=== PATIENT | male | born 1955 | race Caucasian/White ===

== ENCOUNTER → 2020-08-01 | Outpatient (CLI) | payer BC ==
[~2020-08-01] MED LIST: ADVIL; CLOPIDOGREL75 MG; ECOTRIN325 MG; LISINOPRIL10 MG; METFORMIN HCL500 MG; METOPROLOL SUC100 MG; NORVASC5 MG PO; ZOCOR20 MG PO
== END ==
LOC: US 09:38
PROVIDERS: ATTEND Internal Medicine Nephrology
DX: E08.22 Diabetes mellitus due to underlying condition with diabetic chronic kidney disease (principal); N18.31 Chronic kidney disease, stage 3a
CPT/HCPCS: 76770; 76857

== ENCOUNTER → 2022-09-18 | Day surgery (SDC) | payer OTHER ==
[2022-09-11 09:10] LABS: BASOPHILS % 0.7 % (0.0-1.0); EOSINOPHILS # (AUTO) 0.1 (0.0-0.4); EOSINOPHILS % 2.1 % (0.0-6.0); HEMATOCRIT 42.5 % (38.2-49.6); HEMOGLOBIN 13.2 g/dL (14.0-18.0); LYMPHOCYTES # (AUTO) 1.2 (1.0-3.2); LYMPHOCYTES % 20.7 % (18.0-39.1); MEAN CORPUSCULAR HEMOGLOBIN 28.1 pg (28-32); MEAN CORPUSCULAR HGB CONC 31.1 g/dL (31-35); MEAN CORPUSCULAR VOLUME 90.4 fL (81-99); MONOCYTES # (AUTO) 0.6 (0.2-0.8); MONOCYTES % 10.2 % (4.4-11.3); NEUTROPHILS # (AUTO) 3.8 (2.1-6.9); PLATELET COUNT 174 x10e3/uL (140-360); RED CELL DISTRIBUTION WIDTH 14.6 % (11.7-14.4)
[~2022-09-18] MED LIST changes: +CRESTOR10 MG PO; +FARXIGA10 MG PO; +GAS-X125 MG; +GLYBURIDE5 MG PO; +JANUMET 50-1,01 EACH PO; +LACTATED RINGER'S 1,000 ML ONE; +LIDOCAINE HCL 2% LOCAL INJ 5 ML SDV VIAL INJ ONE; +MULTIVITAMIN1 EACH; +OMEGA 3 FISH O1 EACH PO; +OMEPRAZOLE40 MG PO; +PROPOFOL IV EMULSION 10 MG/ML 20 ML VIAL ONE; +SEMGLEE (Y100 UNIT/2 SQ; +TRICOR145 MG PO; +ZETIA10 MG PO
[2022-09-18 09:40] VITALS: BP 104/62
== END | disposition home or self-care (01) ==
LOC: OR 08:09
PROVIDERS: ATTEND Internal Medicine Gastroenterology
DX: K57.32 Diverticulitis of large intestine without perforation or abscess without bleeding (principal); D12.2 Benign neoplasm of ascending colon; D12.5 Benign neoplasm of sigmoid colon; K64.8 Other hemorrhoids; Z01.810 Encounter for preprocedural cardiovascular examination; Z01.812 Encounter for preprocedural laboratory examination; Z79.02 Long term (current) use of antithrombotics/antiplatelets; Z79.82 Long term (current) use of aspirin; Z79.84 Long term (current) use of oral hypoglycemic drugs; Z79.4 Long term (current) use of insulin; Z79.899 Other long term (current) drug therapy; Z68.36 Body mass index [BMI] 36.0-36.9, adult; Z80.0 Family history of malignant neoplasm of digestive organs
CPT/HCPCS: 36415 ×2; 45385; 82948; 85025; 88305; 93005; J2001; J2704; J7121; 45378